=== PATIENT | male | born 1970 | race African-American/Black ===

== ENCOUNTER 2018-11-15 19:19 | Inpatient (IN) ==
[2018-11-15] MEDS ORDERED: IBUPROFEN 800 MG TABLET PO STA (19:46)
[2018-11-15] MEDS ORDERED: CEFTAROLINE 600 MG in SODIUM CHLORIDE 0.9% 100 ML IV STA (19:57)
[2018-11-15 20:14] LABS: Basophils % 0.2 % (0.0-0.8); Eosinophils # 0.1 10*3/uL (0.0-0.87); Eosinophils % 1.2 % (0.00-10.9); Hematocrit 37.7 VOL% (42.0-52.0); Hemoglobin 12.5 GM/DL (14.0-18.0); Immature Granulocytes % 0.3 %; Immature Granulocytes Absolute 0.04 #; Lymphocytes # 1.6 10*3/uL (1.4-4.0); Lymphocytes % 13.5 % (21.2-54.2); Mean Corpuscular HGB Conc 33.2 GM/DL (32-36); Mean Corpuscular Hemoglobin 31 PG (27-34); Mean Corpuscular Volume 92.9 FL (87-102); Mean Platelet Volume 11.8 FL (9.6-12.0); Monocytes # 1.3 10*3/uL (0.11-0.8); Monocytes % 11.6 % (1.7-12.7); Neutrophils # 8.4 10*3/uL (1.4-7.4); Neutrophils % 73.2 % (38.7-73.9); Platelet Count 222 T/CUMM (130-400); Red Blood Count 4.06 MC/CUMM (3.8-5.5); Red Cell Distribution Width 13.1 % (9.3-17.3); White Blood Count 11.5 T/CUMM (4-12)
[2018-11-15 20:36] LABS: Albumin 3.7 G/DL (3.4-5.0); Bilirubin,Total 1.1 MG/DL (0.2-1.0); Calcium 9.1 MG/DL (8.5-10.1); Potassium 3.8 MMOL/L (3.5-5.1)
[2018-11-15] MEDS: ONDANSETRON 4 MG/2 ML VIAL IV PRN (20:36)
[2018-11-15] MEDS ORDERED: MORPHINE 4 MG/1 ML VIAL IV PRN (21:20)
[2018-11-16] MEDS: ONDANSETRON 4 MG/2 ML VIAL IV PRN (00:27)
[2018-11-16] MEDS: SODIUM CHLORIDE 0.9% 1,000 ML IV SCH ×3 (00:31→22:50)
[2018-11-16] MEDS: ACETAMINOPHEN 500 MG TABLET PO SCH ×5 (00:31→23:31)
[2018-11-16 05:25] LABS: Basophils % 0.2 % (0.0-0.8); Eosinophils # 0.1 10*3/uL (0.0-0.87); Eosinophils % 0.5 % (0.00-10.9); Hematocrit 37.3 VOL% (42.0-52.0); Hemoglobin 12.2 GM/DL (14.0-18.0); Immature Granulocytes % 0.3 %; Immature Granulocytes Absolute 0.03 #; Lymphocytes # 1.7 10*3/uL (1.4-4.0); Lymphocytes % 16.6 % (21.2-54.2); Mean Corpuscular HGB Conc 32.7 GM/DL (32-36); Mean Corpuscular Hemoglobin 31 PG (27-34); Mean Corpuscular Volume 94.2 FL (87-102); Monocytes # 1.3 10*3/uL (0.11-0.8); Monocytes % 12.6 % (1.7-12.7); Neutrophils # 7.1 10*3/uL (1.4-7.4); Neutrophils % 69.8 % (38.7-73.9); Platelet Count 218 T/CUMM (130-400); Red Blood Count 3.96 MC/CUMM (3.8-5.5); White Blood Count 10.1 T/CUMM (4-12)
[2018-11-16 05:40] LABS: Calcium 8.6 MG/DL (8.5-10.1); Osmolality,Calculated 272.7 MOS/KG (273-304); Potassium 3.8 MMOL/L (3.5-5.1)
[2018-11-16] MEDS ORDERED: MELOXICAM 7.5 MG TABLET PO SCH (09:00)
[2018-11-16] MEDS: CEFTAROLINE 600 MG in SODIUM CHLORIDE 0.9% 100 ML IV SCH ×2 (09:05→20:06)
[2018-11-16] MEDS ORDERED: PROPOFOL 200 MG/20 ML VIAL IV ONE (10:38)
[2018-11-16] MEDS ORDERED: SEVOFLURANE 1 UNIT/15 MINUTE INH ONE (10:38)
[2018-11-16] MEDS ORDERED: MIDAZOLAM 2 MG/2 ML VIAL ONE (10:39)
[2018-11-16] MEDS ORDERED: fentaNYL 100 MCG/2 ML VIAL ONE (10:40)
[2018-11-16] MEDS ORDERED: PHENYLEPHRINE 1 MG/10 ML SYRINGE IV ONE (10:40)
[2018-11-16] MEDS ORDERED: KETOROLAC 30 MG/1 ML VIAL ONE (10:40)
[2018-11-16] MEDS ORDERED: ACETAMINOPHEN 1,000 MG/100 ML VIAL IV ONE (10:40)
[2018-11-16] MEDS ORDERED: MORPHINE 4 MG/1 ML VIAL IV PRN (10:41)
[2018-11-16] MEDS: SULFAMETHOX/TRIMETHOPRIM 400-80 MG TABLET PO SCH (20:07)
[2018-11-16] MEDS ORDERED: IBUPROFEN 800 MG TABLET PO SCH (21:00)
[2018-11-17] MEDS: ACETAMINOPHEN 500 MG TABLET PO SCH ×3 (06:21→17:13)
[2018-11-17] MEDS: CEFTAROLINE 600 MG in SODIUM CHLORIDE 0.9% 100 ML IV SCH ×2 (08:12→20:33)
[2018-11-17] MEDS: IBUPROFEN 800 MG TABLET PO SCH ×3 (08:12→20:35)
[2018-11-17] MEDS: SULFAMETHOX/TRIMETHOPRIM 400-80 MG TABLET PO SCH (08:12)
[2018-11-17] MEDS: SODIUM CHLORIDE 0.9% 1,000 ML IV SCH (12:09)
[2018-11-18] MEDS: ACETAMINOPHEN 500 MG TABLET PO SCH ×3 (00:16→11:46)
[2018-11-18] MEDS: SODIUM CHLORIDE 0.9% 1,000 ML IV SCH (02:06)
[2018-11-18] MEDS: IBUPROFEN 800 MG TABLET PO SCH ×2 (08:21→15:15)
[2018-11-18] MEDS: CEFTAROLINE 600 MG in SODIUM CHLORIDE 0.9% 100 ML IV SCH (08:21)
[2018-11-18 11:36] VITALS: BP 110/61
== END 2018-11-18 15:12 | disposition home or self-care (01) | DRG 580 ==
LOC: N.ED 19:19 → N.EDINP 21:20 → N.3E 22:58
PROVIDERS: ADMIT Internal Medicine; ATTEND Internal Medicine

== ENCOUNTER 2021-05-31 20:27 | Inpatient (IN) ==
[2021-05-31] MEDS ORDERED: VANCOMYCIN INJ 1,000 MG in SODIUM CHLORIDE 0.9% 250 ML IV STA (21:18)
[2021-05-31 21:28] LABS: Basophils % 0.3 % (0.0-0.8); Eosinophils # 0.1 10*3/uL (0.0-0.87); Eosinophils % 1.3 % (0.00-10.9); Hematocrit 32.6 VOL% (42.0-52.0); Hemoglobin 10.3 GM/DL (14.0-18.0); Immature Granulocytes % 0.6 %; Immature Granulocytes Absolute 0.05 #; Lymphocytes # 2.9 10*3/uL (1.4-4.0); Lymphocytes % 32.9 % (21.2-54.2); Mean Corpuscular HGB Conc 31.6 GM/DL (32-36); Mean Corpuscular Volume 96.7 FL (87-102); Mean Platelet Volume 11.4 FL (9.6-12.0); Monocytes % 10.5 % (1.7-12.7); Neutrophils % 54.4 % (38.7-73.9); Red Blood Count 3.37 MC/CUMM (3.8-5.5); Red Cell Distribution Width 14.3 % (9.3-17.3); White Blood Count 8.7 T/CUMM (4-12)
[2021-05-31 21:29] LABS: Platelet Count 371 T/CUMM (130-400)
[2021-05-31 22:33] LABS: Albumin 3.5 G/DL (3.4-5.0); Bilirubin,Total 0.5 MG/DL (0.20-1.00); Osmolality,Calculated 287.8 MOS/KG (273-304); Potassium 3.8 MMOL/L (3.5-5.1); Total Protein 7.4 G/DL (6.4-8.2)
[2021-05-31] MEDS ORDERED: guaiFENesin/DM ER 600-30 MG TABLET PO PRN (23:01)
[2021-05-31] MEDS ORDERED: NICOTINE 21 MG/24 HR PATCH TRANSDERM PRN (23:01)
[2021-05-31] MEDS ORDERED: diphenhydrAMINE CAP 25 MG CAPSULE PO PRN (23:01)
[2021-05-31] MEDS ORDERED: GLUCAGON 1 MG VIAL IM PRN (23:01)
[2021-05-31] MEDS ORDERED: hydrALAZINE 20 MG/1 ML VIAL IV PRN (23:01)
[2021-05-31] MEDS ORDERED: ACETAMINOPHEN 325 MG TABLET PO PRN (23:01)
[2021-05-31] MEDS ORDERED: ONDANSETRON 4 MG/2 ML VIAL IV PRN (23:01)
[2021-05-31] MEDS ORDERED: ZALEPLON 5 MG CAPSULE PO PRN (23:01)
[2021-05-31] MEDS ORDERED: DEXTROSE 50% 25 GM/50 ML VIAL IV PRN (23:01)
[2021-05-31] MEDS ORDERED: BISACODYL 5 MG TABLET PO PRN (23:01)
[2021-06-01] MEDS: CLINDAMYCIN INJ 600 MG/50 ML PREMIX IV SCH ×2 (03:05→05:57)
[2021-06-01] MEDS: SODIUM CHLORIDE 0.9% 1,000 ML IV SCH ×2 (03:05→11:01)
[2021-06-01 04:58] LABS: Basophils % 0.3 % (0.0-0.8); Eosinophils # 0.1 10*3/uL (0.0-0.87); Eosinophils % 1.8 % (0.00-10.9); Hematocrit 29.8 VOL% (42.0-52.0); Hemoglobin 9.4 GM/DL (14.0-18.0); Immature Granulocytes % 0.7 %; Immature Granulocytes Absolute 0.05 #; Lymphocytes # 2.8 10*3/uL (1.4-4.0); Lymphocytes % 37.1 % (21.2-54.2); Mean Corpuscular HGB Conc 31.5 GM/DL (32-36); Mean Platelet Volume 11.6 FL (9.6-12.0); Monocytes % 11.8 % (1.7-12.7); Neutrophils % 48.3 % (38.7-73.9); Platelet Count 323 T/CUMM (130-400); Red Blood Count 3.04 MC/CUMM (3.8-5.5); Red Cell Distribution Width 14.3 % (9.3-17.3); White Blood Count 7.6 T/CUMM (4-12)
[2021-06-01 05:22] LABS: Calcium 8.4 MG/DL (8.5-10.1); Potassium 3.4 MMOL/L (3.5-5.1)
[2021-06-01] MEDS: PANTOPRAZOLE 40 MG TABLET PO SCH (09:24)
[2021-06-01] MEDS: ENOXAPARIN 40 MG/0.4 ML SYRINGE SUBCUT SCH (09:24)
[2021-06-01] MEDS: VANCOMYCIN INJ 1,250 MG in SODIUM CHLORIDE 0.9% 250 ML IV SCH ×2 (09:25→20:29)
[2021-06-01] MEDS: NICOTINE 21 MG/24 HR PATCH TRANSDERM SCH (11:16)
[2021-06-01] MEDS: PIPERACILLIN/TAZOBACTAM 3,375 MG in SODIUM CHLORIDE 0.9% 100 ML IV SCH ×2 (12:38→16:47)
[2021-06-01] MEDS ORDERED: POTASSIUM CHLORIDE 20 MEQ TABLET PO ONE (12:52)
[2021-06-01] MEDS: FUROSEMIDE 40 MG/4 ML VIAL IV SCH (17:08)
[2021-06-01] MEDS: POTASSIUM CHLORIDE 20 MEQ TABLET PO SCH (20:35)
[2021-06-02] MEDS: PIPERACILLIN/TAZOBACTAM 3,375 MG in SODIUM CHLORIDE 0.9% 100 ML IV SCH ×3 (01:48→17:36)
[2021-06-02 06:34] LABS: Basophils % 0.6 % (0.0-0.8); Eosinophils # 0.2 10*3/uL (0.0-0.87); Hematocrit 34.7 VOL% (42.0-52.0); Hemoglobin 11.2 GM/DL (14.0-18.0); Immature Granulocytes % 0.8 %; Immature Granulocytes Absolute 0.04 #; Lymphocytes # 1.5 10*3/uL (1.4-4.0); Lymphocytes % 30.5 % (21.2-54.2); Mean Corpuscular HGB Conc 32.3 GM/DL (32-36); Mean Corpuscular Volume 96.1 FL (87-102); Mean Platelet Volume 11.4 FL (9.6-12.0); Monocytes % 12.8 % (1.7-12.7); Neutrophils % 52.3 % (38.7-73.9); Platelet Count 338 T/CUMM (130-400); Red Blood Count 3.61 MC/CUMM (3.8-5.5); Red Cell Distribution Width 13.9 % (9.3-17.3); White Blood Count 4.9 T/CUMM (4-12)
[2021-06-02 06:49] LABS: Calcium 8.9 MG/DL (8.5-10.1); Osmolality,Calculated 280.1 MOS/KG (273-304); Potassium 3.6 MMOL/L (3.5-5.1)
[2021-06-02] MEDS: SODIUM CHLORIDE 0.9% 1,000 ML IV SCH ×2 (08:04→17:36)
[2021-06-02] MEDS: FUROSEMIDE 40 MG/4 ML VIAL IV SCH (10:10)
[2021-06-02] MEDS: ENOXAPARIN 40 MG/0.4 ML SYRINGE SUBCUT SCH (10:10)
[2021-06-02] MEDS: NICOTINE 21 MG/24 HR PATCH TRANSDERM SCH (10:10)
[2021-06-02] MEDS: PANTOPRAZOLE 40 MG TABLET PO SCH (10:11)
[2021-06-02] MEDS: POTASSIUM CHLORIDE 20 MEQ TABLET PO SCH ×2 (10:11→20:28)
[2021-06-02] MEDS: VANCOMYCIN INJ 1,250 MG in SODIUM CHLORIDE 0.9% 250 ML IV SCH ×2 (10:11→20:27)
[2021-06-02] MEDS ORDERED: ERGOCALCIFEROL 50,000 UNIT CAPSULE PO ONE (13:29)
[2021-06-03] MEDS: PIPERACILLIN/TAZOBACTAM 3,375 MG in SODIUM CHLORIDE 0.9% 100 ML IV SCH ×3 (02:14→17:40)
[2021-06-03 05:33] LABS: Basophils % 0.2 % (0.0-0.8); Eosinophils # 0.2 10*3/uL (0.0-0.87); Eosinophils % 5.3 % (0.00-10.9); Hematocrit 37.5 VOL% (42.0-52.0); Hemoglobin 11.8 GM/DL (14.0-18.0); Immature Granulocytes % 0.5 %; Immature Granulocytes Absolute 0.02 #; Lymphocytes # 1.7 10*3/uL (1.4-4.0); Lymphocytes % 38.1 % (21.2-54.2); Mean Corpuscular HGB Conc 31.5 GM/DL (32-36); Mean Corpuscular Volume 96.2 FL (87-102); Mean Platelet Volume 11.4 FL (9.6-12.0); Monocytes % 15.4 % (1.7-12.7); Neutrophils % 40.5 % (38.7-73.9); Platelet Count 340 T/CUMM (130-400); Red Cell Distribution Width 14.1 % (9.3-17.3); White Blood Count 4.4 T/CUMM (4-12)
[2021-06-03 06:05] LABS: Calcium 8.7 MG/DL (8.5-10.1); Osmolality,Calculated 275.5 MOS/KG (273-304); Potassium 3.7 MMOL/L (3.5-5.1)
[2021-06-03] MEDS: SODIUM CHLORIDE 0.9% 1,000 ML IV SCH (07:58)
[2021-06-03] MEDS: PANTOPRAZOLE 40 MG TABLET PO SCH (09:52)
[2021-06-03] MEDS: MULTIVITAMIN (BEROCCA) TABLET PO SCH (09:52)
[2021-06-03] MEDS: CHOLECALCIFEROL 1,000 UNIT TABLET PO SCH (09:52)
[2021-06-03] MEDS: FUROSEMIDE 40 MG/4 ML VIAL IV SCH (09:53)
[2021-06-03] MEDS: ENOXAPARIN 40 MG/0.4 ML SYRINGE SUBCUT SCH (09:53)
[2021-06-03] MEDS: VANCOMYCIN INJ 1,250 MG in SODIUM CHLORIDE 0.9% 250 ML IV SCH ×2 (09:54→20:58)
[2021-06-03] MEDS: POTASSIUM CHLORIDE 20 MEQ TABLET PO SCH ×2 (11:32→20:57)
[2021-06-03] MEDS: NICOTINE 21 MG/24 HR PATCH TRANSDERM SCH (11:32)
[2021-06-04] MEDS: SODIUM CHLORIDE 0.9% 1,000 ML IV SCH ×2 (01:18→05:47)
[2021-06-04] MEDS: PIPERACILLIN/TAZOBACTAM 3,375 MG in SODIUM CHLORIDE 0.9% 100 ML IV SCH ×2 (01:18→09:57)
[2021-06-04 06:50] LABS: Basophils % 0.4 % (0.0-0.8); Eosinophils # 0.3 10*3/uL (0.0-0.87); Eosinophils % 6.1 % (0.00-10.9); Hematocrit 37.9 VOL% (42.0-52.0); Hemoglobin 12.1 GM/DL (14.0-18.0); Immature Granulocytes % 0.7 %; Immature Granulocytes Absolute 0.03 #; Lymphocytes # 1.8 10*3/uL (1.4-4.0); Lymphocytes % 39.3 % (21.2-54.2); Mean Corpuscular HGB Conc 31.9 GM/DL (32-36); Mean Corpuscular Volume 96.4 FL (87-102); Mean Platelet Volume 11.6 FL (9.6-12.0); Neutrophils % 36.5 % (38.7-73.9); Platelet Count 313 T/CUMM (130-400); Red Blood Count 3.93 MC/CUMM (3.8-5.5); Red Cell Distribution Width 13.6 % (9.3-17.3); White Blood Count 4.6 T/CUMM (4-12)
[2021-06-04 07:15] LABS: Eosinophils 5 % (0-10); Hypochromasia 1+; Lymphocytes 38 % (20-55); Microcytosis Slight; Platelet Estimate Adequate; Segmented Neutrophils 39 % (50-85); Total Cells Counted 100
[2021-06-04 07:18] LABS: Calcium 8.9 MG/DL (8.5-10.1); Osmolality,Calculated 276.5 MOS/KG (273-304); Potassium 3.6 MMOL/L (3.5-5.1)
[2021-06-04] MEDS: POTASSIUM CHLORIDE 20 MEQ TABLET PO SCH (09:13)
[2021-06-04] MEDS: PANTOPRAZOLE 40 MG TABLET PO SCH (09:13)
[2021-06-04] MEDS: MULTIVITAMIN (BEROCCA) TABLET PO SCH (09:13)
[2021-06-04] MEDS: CHOLECALCIFEROL 1,000 UNIT TABLET PO SCH (09:13)
[2021-06-04] MEDS: ENOXAPARIN 40 MG/0.4 ML SYRINGE SUBCUT SCH (09:14)
[2021-06-04] MEDS: NICOTINE 21 MG/24 HR PATCH TRANSDERM SCH (09:14)
[2021-06-04] MEDS: FUROSEMIDE 40 MG/4 ML VIAL IV SCH (09:14)
[2021-06-04 11:30] VITALS: BP 109/59
== END 2021-06-04 12:36 | disposition home or self-care (01) | DRG 603 ==
LOC: N.ED 20:27 → N.EDINP 23:01 → SUATTDRO 23:01 → N.3E 23:27
PROVIDERS: ADMIT Hospitalist; ATTEND Internal Medicine